=== PATIENT | female | born 1980 | race Caucasian/White ===

== ENCOUNTER 2019-02-05 07:52 | Emergency (ER) | payer BC ==
--- NOTE | 2019-02-05 08:41 | EDM.PDOC ---
ED HPI GENERAL MEDICAL PROBLEM - General Chief Complaint: Genitourinary Problem Stated Complaint: KIDNEY PAIN Time Seen by Provider: 02/05/19 08:17 Source of Information: Reports: Patient, RN Notes Reviewed - History of Present Illness INITIAL COMMENTS - FREE TEXT/NARRATIVE: 38-year-old female has had some mild intermittent dysuria for the last 2 or 3 days. This morning she felt like she was having some low-grade fever or chills and also right low back discomfort. Does have history of previous kidney infection. 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 No current abdominal discomfort, nausea or vomiting. No cough chest pain or difficulty breathing. Right Flank Pain Score (Numeric/FACES): 2 - Related Data Allergies Allergy/AdvReac Type Severity Reaction Status Date / Time ciprofloxacin [From Cipro] Allergy Acid Reflux Verified 02/05/19 07:58 sulfamethoxazole Allergy Acid Reflux Verified 02/05/19 07:58 [From Bactrim] trimethoprim [From Bactrim] Allergy Acid Reflux Verified 02/05/19 07:58 Home Meds: Home Meds Multivitamin with Minerals [Multiple Vitamin] 1 tab PO DAILY 02/05/19 [History] Past Medical History HEENT History: Reports: Impaired Vision Other HEENT History: wears reading eyeglasses. Cardiovascular History: Reports: Hypertension Other Cardiovascular History: HTN resolved after L) kidney removed. Genitourinary History: Reports: Pyelonephritis, Renal Calculus, Other (See Below ) Other Genitourinary History: L) kidney removed. [employer] History: Reports: Musculoskeletal History: Reports: Fracture Hematologic History: Reports: Anemia - Infectious Disease History Infectious Disease History: Reports: Chicken Pox - Past Surgical History Musculoskeletal Surgical History: Reports: Other (See Below) Other Musculoskeletal Surgeries/Procedures:: R) wrist fx with ORIF Social & Family History - Tobacco Use Smoking Status *Q: Never Smoker Second Hand Smoke Exposure: No - Caffeine Use Caffeine Use: Reports: Coffee - Alcohol Use Days Per Week of Alcohol Use: 7 Number of Drinks Per Day: 1 Total Drinks Per Week: 7 - Recreational Drug Use Recreational Drug Use: No ED ROS GENERAL - Review of Systems Review Of Systems: See Below Constitutional: Reports: Fever, Chills HEENT: Reports: No Symptoms Respiratory: Reports: No Symptoms Cardiovascular: Denies: Chest Pain GI/Abdominal: Denies: Abdominal Pain, Nausea, Vomiting : Reports: Dysuria (Mild intermittent) Musculoskeletal: Reports: Back Pain (Right low back) Skin: Reports: No Symptoms Neurological: Reports: No Symptoms ED EXAM, RENAL/ - Physical Exam Exam: See Below General Appearance: Alert, No Apparent Distress Throat/Mouth: Normal Inspection Head: Atraumatic. No: Facial Swelling Neck: Supple Respiratory/Chest: No Respiratory Distress, Lungs Clear, Normal Breath Sounds Cardiovascular: Regular Rate, Rhythm GI/Abdominal: Soft, Non-Tender Extremities: No: Pedal Edema Neurological: Alert, Oriented, No Motor/Sensory Deficits Skin Exam: Warm, Dry, Normal Color Course - Vital Signs Last Recorded V/S: Last Vital Signs Temp 98.5 F 02/05/19 07:55 Pulse 78 02/05/19 07:55 Resp 18 02/05/19 07:55 BP 115/76 02/05/19 07:55 Pulse Ox 100 02/05/19 07:55 - Orders/Labs/Meds Labs: Laboratory Tests 02/05/19 02/05/19 02/05/19 Range/Units 08:20 08:40 08:40 WBC 9.98 (3.98-10.04) K/mm3 RBC 4.35 (3.98-5.22) M/mm3 Hgb 12.4 (11.2-15.7) gm/L Hct 37.5 (34.1-44.9) % MCV 86.2 (79.4-94.8) fl MCH 28.5 (25.6-32.2) pg MCHC 33.1 (32.2-35.5) g/dl RDW Std Deviation 43.2 (36.4-46.3) fL Plt Count 270 (182-369) K/mm3 MPV 9.5 (9.4-12.3) fl Neut % (Auto) 80.0 H (34.0-71.1) % Lymph % (Auto) 12.0 L (19.3-51.7) % Anderson % (Auto) 7.4 (4.7-12.5) % Eos % (Auto) 0.3 L (0.7-5.8) Baso % (Auto) 0.1 (0.1-1.2) % Neut # (Auto) 7.98 H (1.56-6.13) K/mm3 Lymph # (Auto) 1.20 (1.18-3.74) K/mm3 Anderson # (Auto) 0.74 H (0.24-0.36) K/mm3 Eos # (Auto) 0.03 L (0.04-0.36) K/mm3 Baso # (Auto) 0.01 (0.01-0.08) K/mm3 Sodium 138 (136-145) mEq/L Potassium 3.8 (3.5-5.1) mEq/L Chloride 101 (98-107) mEq/L Carbon Dioxide 25 (21-32) mEq/L Anion Gap 15.8 H (5-15) BUN 18 (7-18) mg/dL Creatinine 1.0 (0.55-1.02) mg/dL Est Cr Clr Drug Dosing 58.69 mL/min Estimated GFR (MDRD) > 60 (>60) mL/min BUN/Creatinine Ratio 18.0 (14-18) Glucose 85 (74-106) mg/dL Calcium 9.7 (8.5-10.1) mg/dL Total Bilirubin 0.5 (0.2-1.0) mg/dL AST 16 (15-37) U/L ALT 21 (14-59) U/L Alkaline Phosphatase 54 (46-116) U/L Total Protein 7.9 (6.4-8.2) g/dl Albumin 4.0 (3.4-5.0) g/dl Globulin 3.9 gm/dL Albumin/Globulin Ratio 1.0 (1-2) Urine Color Light yellow (Yellow) Urine Appearance Clear (Clear) Urine pH 7.0 (5.0-8.0) Ur Specific Lena 1.010 (1.005-1.030) Urine Protein Negative (Negative) Urine Glucose (UA) Negative (Negative) Urine Ketones Negative (Negative) Urine Occult Blood Negative (Negative) Urine Nitrite Negative (Negative) Urine Bilirubin Negative (Negative) Urine Urobilinogen 0.2 (0.2-1.0) Ur Leukocyte Esterase Negative (Negative) Departure - Departure Time of Disposition: 09:59 Disposition: Home, Self-Care 01 Condition: Fair Clinical Impression: Back pain Qualifiers: Back pain location: low back pain Chronicity: unspecified Back pain laterality : right Sciatica presence: without sciatica Qualified Code(s): M54.5 - Low back pain - Discharge Information Referrals: PCP,None [Primary Care Provider] - Forms: ED Department Discharge Additional Instructions: Continue to drink plenty of fluids to maintain hydration, you may alternate Tylenol or ibuprofen as needed for discomfort, you also may alternate ice and heat right low back as needed. Follow-up clinic if symptoms not resolving by early next week, call [phone] as needed for appointment or you may also see one of the providers up at the [facility]. Return to ED as needed if symptoms worsening in any way.
== END 2019-02-05 10:05 | disposition home or self-care (01) ==
LOC: JD.ED 07:52
DX: M54.5 Low back pain (principal); I10 Essential (primary) hypertension; Z88.1 Allergy status to other antibiotic agents; Z88.2 Allergy status to sulfonamides
CPT/HCPCS: 36415; 80053; 81003; 85025; 99282; 99284